=== PATIENT | female | born 1930 | race Caucasian/White ===

== ENCOUNTER 2021-08-13 18:53 | Inpatient (IN) | payer MEDICARE, OTHER ==
[~2021-08-13] VITALS: Ht 149.9 cm; Wt 78.1 kg
[2021-08-13 19:50] LABS: Basophils # (auto) 0 10 ^3/uL (0-0.2); Basophils % (auto) 0.5 % (0.0-2.0); Eosinophils # (auto) 0 10 ^3/uL (0-0.8); Hematocrit 44.3 % (36.0-46.0); Hemoglobin 14.9 g/dL (12.2-16.2); Lymphocytes # (auto) 0.8 10 ^3/uL (0.4-5.4); Lymphocytes % (auto) 18.5 % (10.0-50.0); Mean Corpuscular Hemoglobin 29.4 pg (28.0-32.0); Mean Corpuscular Hgb Conc. 33.6 g/dL (32.0-36.0); Mean Corpuscular Volume 87.3 fL (80.0-100.0); Monocytes # (auto) 0.2 10 ^3/uL (0-1.3); Monocytes % (auto) 5.6 % (0.0-12.0); Neutrophils # (auto) 3.1 10 ^3/uL (1.6-8.6); Neutrophils % (auto) 75.4 % (37.0-80.0); Nucleated Red Blood Cells % 0.1 %; Red Blood Cells 5.07 10^6/uL (4.0-5.20); Red Cell Distribution Width 13.6 % (11.8-14.3); White Blood Cell 4.1 10^3/uL (4.4-10.8)
[2021-08-13 20:08] LABS: INR 0.98 (0.9-1.15); Partial Thromboplastin Time 33.6 sec (23.6-33.0)
[2021-08-13 20:16] LABS: Albumin 3.2 g/dL (3.4-5.0); Calcium 8.9 mg/dL (8.5-10.1); Magnesium 2.5 mg/dL (1.6-2.6); Potassium 4.8 mmol/L (3.5-5.1)
[2021-08-13 20:22] LABS: Bilirubin, Total 0.5 mg/dL (0.2-1.0); Total Protein 7.2 g/dL (6.4-8.2)
[2021-08-13] MEDS ORDERED: cefTRIAXone 1GM/50ML D5W 50 ML IV ONE (23:15)
[2021-08-13] MEDS ORDERED: AZITHROMYCIN 500MG/ 250ML 250 ML IV ONE (23:15)
[2021-08-13 23:26] LABS: INR 0.98 (0.9-1.15)
[2021-08-14] MEDS ORDERED: diphenhdrAMINE HCL 50 MG/1 ML VL IV ONE (00:15)
[2021-08-14] MEDS ORDERED: ACETAMINOPHEN 325 MG TAB PO PRN (03:45)
[2021-08-14] MEDS ORDERED: ONDANSETRON HCL 4 MG/2 ML VIAL IV PRN (03:45)
[2021-08-14] MEDS ORDERED: DOCUSATE SOD 100 MG CAP PO PRN (03:45)
[2021-08-14] MEDS ORDERED: HYDROcodone-ACET 5/325MG TAB PO PRN (03:45)
[2021-08-14] MEDS ORDERED: MORPHINE SULFATE INJECTION 2 MG/ML SYRG IV PRN (06:00)
[2021-08-14] MEDS ORDERED: NITROGLYCERIN 0.4 MG SL TAB SL PRN (06:00)
[2021-08-14] MEDS: SODIUM CHLOR 0.9% PF (SALINE LOCK) 10ML VIAL/SYR IV SCH ×3 (06:03→23:17)
[2021-08-14 07:51] LABS: Urine Bacteria NONE SEEN /hpf (None Seen); Urine Blood Negative /uL (Negative); Urine Hyaline Cast FEW /lpf (0 - 2); Urine Mucus FEW (None Seen); Urine Specific Gravity 1.017 (1.001-1.035); Urine WBC 21 /hpf (0 - 5)
[2021-08-14 08:44] LABS: Basophils # (auto) 0 10 ^3/uL (0-0.2); Basophils % (auto) 0.2 % (0.0-2.0); Eosinophils # (auto) 0 10 ^3/uL (0-0.8); Eosinophils % (auto) 0.1 % (0.0-7.0); Hematocrit 41.7 % (36.0-46.0); Hemoglobin 13.6 g/dL (12.2-16.2); Lymphocytes # (auto) 0.7 10 ^3/uL (0.4-5.4); Lymphocytes % (auto) 16.2 % (10.0-50.0); Mean Corpuscular Hemoglobin 28.6 pg (28.0-32.0); Mean Corpuscular Hgb Conc. 32.6 g/dL (32.0-36.0); Mean Corpuscular Volume 87.5 fL (80.0-100.0); Monocytes # (auto) 0.2 10 ^3/uL (0-1.3); Monocytes % (auto) 5.5 % (0.0-12.0); Neutrophils # (auto) 3.5 10 ^3/uL (1.6-8.6); Nucleated Red Blood Cells % 0.2 %; Red Blood Cells 4.77 10^6/uL (4.0-5.20); Red Cell Distribution Width 13.5 % (11.8-14.3); White Blood Cell 4.5 10^3/uL (4.4-10.8)
[2021-08-14 08:59] LABS: Albumin 2.7 g/dL (3.4-5.0); Calcium 8.6 mg/dL (8.5-10.1); Potassium 4.6 mmol/L (3.5-5.1)
[2021-08-14 09:10] LABS: BUN/Creatinine Ratio 20.8; Bilirubin, Total 0.3 mg/dL (0.2-1.0); Total Protein 6.5 g/dL (6.4-8.2)
[2021-08-14] MEDS: ZINC SULFATE 220mg CAP or TAB PO SCH (10:00)
[2021-08-14] MEDS: MULTIPLE VITAMIN TAB PO SCH (10:00)
[2021-08-14] MEDS: ASCORBIC ACID 500 MG TAB PO SCH ×2 (10:00→23:17)
[2021-08-14] MEDS: FAMOTIDINE (10MG/ML) 2ML VL IV SCH (10:24)
[2021-08-14] MEDS: ENOXAPARIN SOD 30 MG/0.3 ML SYRINGE SC SCH (10:25)
[2021-08-14] MEDS ORDERED: REMDESIVIR PER PHARMACY 0 ML IV SCH (14:30)
[2021-08-14] MEDS ORDERED: DexAMETHasone SOD PHOS 10MG/1ML VIAL INJ IV ONE (14:30)
[2021-08-14] MEDS ORDERED: REMDESIVIR 200 MG in NS 210ml LOADING DOSE ADULT IV ONE (15:00)
[2021-08-14] MEDS: cefTRIAXone 1GM/50ML D5W 50 ML IV SCH (22:55)
[2021-08-14] MEDS: AZITHROMYCIN 500MG/ 250ML 250 ML IV SCH (23:18)
[2021-08-14] MEDS ORDERED: ROSU1TAB13 PO (23:42)
[2021-08-14] MEDS ORDERED: LOSA-39 PO (23:42)
[2021-08-14] MEDS ORDERED: METO25TA93 PO (23:42)
[2021-08-14] MEDS ORDERED: BUSP5TAB51 PO (23:42)
[2021-08-14] MEDS ORDERED: PANT40TA2 PO (23:42)
[2021-08-14] MEDS ORDERED: TAMS0.4C36 PO (23:42)
[2021-08-14] MEDS ORDERED: CLON0.1D7 TD (23:42)
[2021-08-14] MEDS ORDERED: APIX2.5T PO (23:42)
[2021-08-14 23:46] VITALS: BP 114/69
[2021-08-15 05:00] VITALS: BP 113/66
[2021-08-15] MEDS: SODIUM CHLOR 0.9% PF (SALINE LOCK) 10ML VIAL/SYR IV SCH ×3 (05:06→20:55)
[2021-08-15 06:46] LABS: Basophils # (auto) 0 10 ^3/uL (0-0.2); Basophils % (auto) 0.7 % (0.0-2.0); Eosinophils # (auto) 0 10 ^3/uL (0-0.8); Hematocrit 41.2 % (36.0-46.0); Hemoglobin 13.8 g/dL (12.2-16.2); Lymphocytes # (auto) 0.7 10 ^3/uL (0.4-5.4); Mean Corpuscular Hemoglobin 29.5 pg (28.0-32.0); Mean Corpuscular Hgb Conc. 33.6 g/dL (32.0-36.0); Mean Corpuscular Volume 87.9 fL (80.0-100.0); Monocytes # (auto) 0.5 10 ^3/uL (0-1.3); Monocytes % (auto) 10.6 % (0.0-12.0); Neutrophils # (auto) 3.3 10 ^3/uL (1.6-8.6); Neutrophils % (auto) 73.7 % (37.0-80.0); Nucleated Red Blood Cells % 0.1 %; Red Blood Cells 4.68 10^6/uL (4.0-5.20); Red Cell Distribution Width 13.7 % (11.8-14.3); White Blood Cell 4.5 10^3/uL (4.4-10.8)
[2021-08-15 07:02] LABS: Potassium 4.8 mmol/L (3.5-5.1)
[2021-08-15 07:09] LABS: Albumin 2.5 g/dL (3.4-5.0); BUN/Creatinine Ratio 27.7; Bilirubin, Total 0.4 mg/dL (0.2-1.0); Calcium 8.2 mg/dL (8.5-10.1); Magnesium 2.7 mg/dL (1.6-2.6); Total Protein 6.3 g/dL (6.4-8.2)
[2021-08-15 08:54] VITALS: BP 119/57
[2021-08-15] MEDS ORDERED: BUDESONIDE (INHALATION) 180 MCG IH IN SCH (10:00)
[2021-08-15] MEDS: ASCORBIC ACID 500 MG TAB PO SCH ×2 (10:00→21:12)
[2021-08-15] MEDS: ZINC SULFATE 220mg CAP or TAB PO SCH (10:00)
[2021-08-15] MEDS: MULTIPLE VITAMIN TAB PO SCH (10:00)
[2021-08-15] MEDS: DexAMETHasone SOD PHOS 10MG/1ML VIAL INJ IV SCH (10:38)
[2021-08-15] MEDS: ENOXAPARIN SOD 30 MG/0.3 ML SYRINGE SC SCH (10:38)
[2021-08-15] MEDS: FAMOTIDINE (10MG/ML) 2ML VL IV SCH (10:38)
[2021-08-15 12:51] VITALS: BP 97/51
[2021-08-15] MEDS: REMDESIVIR 100mg 100 MG in SODIUM CHL 0.9% 230 ML IV SCH (15:08)
[2021-08-15 17:00] VITALS: BP 121/78
[2021-08-15] MEDS: cefTRIAXone 1GM/50ML D5W 50 ML IV SCH (20:55)
[2021-08-15] MEDS: AZITHROMYCIN 500MG/ 250ML 250 ML IV SCH (20:55)
[2021-08-15] MEDS: BUDESONIDE (INHALATION) 0.5 MG/2 ML NEB NEB SCH (21:49)
[2021-08-15 22:00] VITALS: BP 123/57
[2021-08-16 05:00] VITALS: BP 116/56
[2021-08-16] MEDS: SODIUM CHLOR 0.9% PF (SALINE LOCK) 10ML VIAL/SYR IV SCH ×3 (05:51→22:00)
[2021-08-16] MEDS: BUDESONIDE (INHALATION) 0.5 MG/2 ML NEB NEB SCH ×2 (05:57→21:56)
[2021-08-16 06:23] LABS: Albumin 2.5 g/dL (3.4-5.0); Bilirubin, Direct 0.1 mg/dL (0-0.2)
[2021-08-16 06:26] LABS: Bilirubin, Total 0.4 mg/dL (0.2-1.0); Total Protein 5.5 g/dL (6.4-8.2)
[2021-08-16 09:00] VITALS: BP 108/56
[2021-08-16] MEDS: DexAMETHasone SOD PHOS 10MG/1ML VIAL INJ IV SCH (09:05)
[2021-08-16] MEDS: MULTIPLE VITAMIN TAB PO SCH (09:05)
[2021-08-16] MEDS: ENOXAPARIN SOD 30 MG/0.3 ML SYRINGE SC SCH (09:05)
[2021-08-16] MEDS: ASCORBIC ACID 500 MG TAB PO SCH ×2 (09:05→22:32)
[2021-08-16] MEDS: FAMOTIDINE (10MG/ML) 2ML VL IV SCH (09:05)
[2021-08-16] MEDS: ZINC SULFATE 220mg CAP or TAB PO SCH (09:05)
[2021-08-16] MEDS: ARTIFICIAL TEARS 15ml EACHEYE SCH ×4 (12:00→18:00)
[2021-08-16 13:00] VITALS: BP 121/61
[2021-08-16] MEDS: REMDESIVIR 100mg 100 MG in SODIUM CHL 0.9% 230 ML IV SCH (15:00)
[2021-08-16 16:42] VITALS: BP 105/50
[2021-08-16 22:00] VITALS: BP 142/60
[2021-08-17 05:00] VITALS: BP 132/65
[2021-08-17] MEDS: SODIUM CHLOR 0.9% PF (SALINE LOCK) 10ML VIAL/SYR IV SCH ×3 (06:24→22:00)
[2021-08-17] MEDS: ARTIFICIAL TEARS 15ml EACHEYE SCH ×4 (06:27→16:59)
[2021-08-17 07:35] LABS: Albumin 2.6 g/dL (3.4-5.0); Bilirubin, Direct 0.2 mg/dL (0-0.2); Bilirubin, Total 0.5 mg/dL (0.2-1.0); Total Protein 5.5 g/dL (6.4-8.2)
[2021-08-17] MEDS: BUDESONIDE (INHALATION) 0.5 MG/2 ML NEB NEB SCH ×2 (09:22→20:50)
[2021-08-17] MEDS: DexAMETHasone SOD PHOS 10MG/1ML VIAL INJ IV SCH (09:29)
[2021-08-17] MEDS: MULTIPLE VITAMIN TAB PO SCH (09:29)
[2021-08-17] MEDS: ENOXAPARIN SOD 30 MG/0.3 ML SYRINGE SC SCH (09:29)
[2021-08-17] MEDS: ASCORBIC ACID 500 MG TAB PO SCH ×2 (09:30→22:00)
[2021-08-17] MEDS: ZINC SULFATE 220mg CAP or TAB PO SCH (09:30)
[2021-08-17] MEDS: FAMOTIDINE (10MG/ML) 2ML VL IV SCH (09:30)
[2021-08-17] MEDS: REMDESIVIR 100mg 100 MG in SODIUM CHL 0.9% 230 ML IV SCH (15:09)
[2021-08-17 17:00] VITALS: BP 141/60
[2021-08-17 22:00] VITALS: BP 141/71
[2021-08-18 05:00] VITALS: BP 147/75
[2021-08-18] MEDS: ARTIFICIAL TEARS 15ml EACHEYE SCH ×5 (05:33→23:17)
[2021-08-18] MEDS: SODIUM CHLOR 0.9% PF (SALINE LOCK) 10ML VIAL/SYR IV SCH ×3 (05:33→22:00)
[2021-08-18 07:19] LABS: Albumin 2.6 g/dL (3.4-5.0); BUN/Creatinine Ratio 55.8; Calcium 9.1 mg/dL (8.5-10.1); Potassium 4.4 mmol/L (3.5-5.1)
[2021-08-18 07:21] LABS: Bilirubin, Total 0.7 mg/dL (0.2-1.0); Total Protein 5.7 g/dL (6.4-8.2)
[2021-08-18 08:54] VITALS: BP 129/91
[2021-08-18] MEDS: FAMOTIDINE (10MG/ML) 2ML VL IV SCH (09:21)
[2021-08-18] MEDS: DexAMETHasone SOD PHOS 10MG/1ML VIAL INJ IV SCH (09:22)
[2021-08-18] MEDS: ENOXAPARIN SOD 30 MG/0.3 ML SYRINGE SC SCH (09:23)
[2021-08-18] MEDS: ZINC SULFATE 220mg CAP or TAB PO SCH (09:34)
[2021-08-18] MEDS: MULTIPLE VITAMIN TAB PO SCH (09:34)
[2021-08-18] MEDS: ASCORBIC ACID 500 MG TAB PO SCH ×2 (09:34→23:17)
[2021-08-18] MEDS: BUDESONIDE (INHALATION) 0.5 MG/2 ML NEB NEB SCH ×2 (10:00→23:29)
[2021-08-18 12:57] VITALS: BP 123/61
[2021-08-18] MEDS: REMDESIVIR 100mg 100 MG in SODIUM CHL 0.9% 230 ML IV SCH (16:20)
[2021-08-18 16:25] VITALS: BP 145/65
[2021-08-18 22:00] VITALS: BP 126/43
[2021-08-19] MEDS: SODIUM CHLOR 0.9% PF (SALINE LOCK) 10ML VIAL/SYR IV SCH ×3 (05:59→22:00)
[2021-08-19] MEDS: ARTIFICIAL TEARS 15ml EACHEYE SCH ×3 (05:59→17:33)
[2021-08-19] MEDS: BUDESONIDE (INHALATION) 0.5 MG/2 ML NEB NEB SCH ×2 (07:18→22:22)
[2021-08-19 08:15] VITALS: BP 126/53
[2021-08-19] MEDS: MULTIPLE VITAMIN TAB PO SCH (10:05)
[2021-08-19] MEDS: DexAMETHasone SOD PHOS 10MG/1ML VIAL INJ IV SCH (10:05)
[2021-08-19] MEDS: ZINC SULFATE 220mg CAP or TAB PO SCH (10:05)
[2021-08-19] MEDS: FAMOTIDINE (10MG/ML) 2ML VL IV SCH (10:05)
[2021-08-19] MEDS: ASCORBIC ACID 500 MG TAB PO SCH ×2 (10:06→22:00)
[2021-08-19] MEDS: ENOXAPARIN SOD 30 MG/0.3 ML SYRINGE SC SCH (10:06)
[2021-08-19] MEDS: HALOPERIDOL LACTATE 5 MG/ML INJ VIAL IM PRN ×2 (11:29→18:27)
[2021-08-19 22:00] VITALS: BP 121/50
[2021-08-20] MEDS: ARTIFICIAL TEARS 15ml EACHEYE SCH ×5 (00:29→23:26)
[2021-08-20] MEDS: HALOPERIDOL LACTATE 5 MG/ML INJ VIAL IM PRN ×3 (00:58→21:54)
[2021-08-20] MEDS: LORazepam 2MG/ML-1ML VIAL IV PRN ×2 (01:36→08:30)
[2021-08-20 05:00] VITALS: BP 127/84
[2021-08-20] MEDS: SODIUM CHLOR 0.9% PF (SALINE LOCK) 10ML VIAL/SYR IV SCH ×3 (05:56→21:54)
[2021-08-20] MEDS: BUDESONIDE (INHALATION) 0.5 MG/2 ML NEB NEB SCH ×2 (06:13→18:53)
[2021-08-20 07:56] LABS: Basophils # (auto) 0 10 ^3/uL (0-0.2); Basophils % (auto) 0.1 % (0.0-2.0); Eosinophils # (auto) 0 10 ^3/uL (0-0.8); Hematocrit 44.4 % (36.0-46.0); Hemoglobin 14.3 g/dL (12.2-16.2); Lymphocytes # (auto) 0.2 10 ^3/uL (0.4-5.4); Lymphocytes % (auto) 2.2 % (10.0-50.0); Mean Corpuscular Hemoglobin 28.7 pg (28.0-32.0); Mean Corpuscular Hgb Conc. 32.3 g/dL (32.0-36.0); Mean Corpuscular Volume 88.8 fL (80.0-100.0); Monocytes # (auto) 0.2 10 ^3/uL (0-1.3); Monocytes % (auto) 2.1 % (0.0-12.0); Neutrophils # (auto) 10.7 10 ^3/uL (1.6-8.6); Neutrophils % (auto) 95.6 % (37.0-80.0); Nucleated Red Blood Cells % 0.1 %; Red Cell Distribution Width 13.5 % (11.8-14.3); White Blood Cell 11.2 10^3/uL (4.4-10.8)
[2021-08-20 08:11] LABS: Magnesium 3.1 mg/dL (1.6-2.6); Potassium 4.1 mmol/L (3.5-5.1)
[2021-08-20 08:13] LABS: BUN/Creatinine Ratio 51.8; Calcium 9.8 mg/dL (8.5-10.1)
[2021-08-20 08:15] VITALS: BP 108/53
[2021-08-20 09:00] VITALS: BP 132/72
[2021-08-20] MEDS: MULTIPLE VITAMIN TAB PO SCH (10:00)
[2021-08-20] MEDS: ASCORBIC ACID 500 MG TAB PO SCH ×2 (10:00→21:54)
[2021-08-20] MEDS: ZINC SULFATE 220mg CAP or TAB PO SCH (10:00)
[2021-08-20] MEDS: FAMOTIDINE (10MG/ML) 2ML VL IV SCH (10:20)
[2021-08-20] MEDS: DexAMETHasone SOD PHOS 10MG/1ML VIAL INJ IV SCH (10:20)
[2021-08-20] MEDS: ENOXAPARIN SOD 30 MG/0.3 ML SYRINGE SC SCH (10:21)
[2021-08-20] MEDS ORDERED: PPN PER PHARMACY 0 ML IV SCH (11:30)
[2021-08-20] MEDS: D5W/SOD CHL 0.45% 1,000 ML IV SCH ×2 (11:57→20:46)
[2021-08-20] MEDS: Ensure HIGH Protein Chocolate 8oz Bottle PO SCH ×2 (12:23→17:47)
[2021-08-20 12:41] LABS: Albumin 2.7 g/dL (3.4-5.0); Bilirubin, Direct 0.3 mg/dL (0-0.2)
[2021-08-20 12:48] LABS: Bilirubin, Total 1.1 mg/dL (0.2-1.0); Pre Albumin 15.6 mg/dL (20.0-40.0); Total Protein 6.1 g/dL (6.4-8.2)
[2021-08-20 13:00] VITALS: BP 123/61
[2021-08-20] MEDS ORDERED: PPN PER PHARMACY IV NR ×6 (20:00)
[2021-08-20 22:00] VITALS: BP 144/64
[2021-08-20] MEDS: ACCU-CHEK COMFORT CURVE STRIP VI SCH (23:27)
[2021-08-20] MEDS: InsuLIN REG 1unit/0.01ml Soln (100units/ml) SC SCH (23:27)
[2021-08-21] VITALS (8 sets, daily range): BP systolic 88–158; BP diastolic 51–95
[2021-08-21] MEDS ORDERED: DEXTROSE (50%) 50ML SYRG IV SCH
[2021-08-21] MEDS: SODIUM CHLOR 0.9% PF (SALINE LOCK) 10ML VIAL/SYR IV SCH ×3 (05:19→22:13)
[2021-08-21] MEDS: ARTIFICIAL TEARS 15ml EACHEYE SCH ×3 (05:19→17:44)
[2021-08-21] MEDS: InsuLIN REG 1unit/0.01ml Soln (100units/ml) SC SCH ×2 (05:51→12:00)
[2021-08-21] MEDS: ACCU-CHEK COMFORT CURVE STRIP VI SCH ×2 (06:34→12:00)
[2021-08-21] MEDS: HALOPERIDOL LACTATE 5 MG/ML INJ VIAL IM PRN (06:43)
[2021-08-21 06:44] LABS: Basophils # (auto) 0 10 ^3/uL (0-0.2); Basophils % (auto) 0.1 % (0.0-2.0); Eosinophils # (auto) 0 10 ^3/uL (0-0.8); Hematocrit 40.6 % (36.0-46.0); Hemoglobin 12.9 g/dL (12.2-16.2); Lymphocytes # (auto) 0.3 10 ^3/uL (0.4-5.4); Lymphocytes % (auto) 2.1 % (10.0-50.0); Mean Corpuscular Hemoglobin 28.2 pg (28.0-32.0); Mean Corpuscular Hgb Conc. 31.9 g/dL (32.0-36.0); Mean Corpuscular Volume 88.7 fL (80.0-100.0); Monocytes # (auto) 0.6 10 ^3/uL (0-1.3); Monocytes % (auto) 3.6 % (0.0-12.0); Neutrophils # (auto) 14.9 10 ^3/uL (1.6-8.6); Neutrophils % (auto) 94.2 % (37.0-80.0); Red Blood Cells 4.57 10^6/uL (4.0-5.20); Red Cell Distribution Width 13.6 % (11.8-14.3); White Blood Cell 15.8 10^3/uL (4.4-10.8)
[2021-08-21 06:57] LABS: Albumin 2.3 g/dL (3.4-5.0); Calcium 8.9 mg/dL (8.5-10.1); Magnesium 3.5 mg/dL (1.6-2.6); Potassium 3.9 mmol/L (3.5-5.1)
[2021-08-21 07:03] LABS: BUN/Creatinine Ratio 53.9; Bilirubin, Total 0.6 mg/dL (0.2-1.0); Phosphorus 1.8 mg/dL (2.5-4.90); Pre Albumin 13.7 mg/dL (20.0-40.0); Total Protein 5.3 g/dL (6.4-8.2)
[2021-08-21] MEDS: D5W/SOD CHL 0.45% 1,000 ML IV SCH ×4 (07:39→22:14)
[2021-08-21] MEDS: Ensure HIGH Protein Chocolate 8oz Bottle PO SCH ×3 (07:39→17:44)
[2021-08-21] MEDS: ZINC SULFATE 220mg CAP or TAB PO SCH (10:00)
[2021-08-21] MEDS: BUDESONIDE (INHALATION) 0.5 MG/2 ML NEB NEB SCH ×2 (10:00→22:06)
[2021-08-21] MEDS: MULTIPLE VITAMIN TAB PO SCH (10:00)
[2021-08-21] MEDS: ASCORBIC ACID 500 MG TAB PO SCH ×2 (10:00→22:13)
[2021-08-21] MEDS: DexAMETHasone SOD PHOS 10MG/1ML VIAL INJ IV SCH (10:05)
[2021-08-21] MEDS: FAMOTIDINE (10MG/ML) 2ML VL IV SCH (10:05)
[2021-08-21] MEDS: ENOXAPARIN SOD 30 MG/0.3 ML SYRINGE SC SCH (10:06)
[2021-08-21] MEDS ORDERED: LORazepam 2MG/ML-1ML VIAL IV ONE (10:30)
[2021-08-21] MEDS ORDERED: MIDAZOLAM HCL 2MG/2ML 2ml VIAL (1mg/ml) ONE (10:58)
[2021-08-21] MEDS ORDERED: ROCURONIUM 10MG/ML 10ML VIAL IV ONE (10:58)
[2021-08-21] MEDS ORDERED: SUCCINYLCHOLINE CHLORIDE 20 MG/ML 10ML VIAL IV ONE (10:58)
[2021-08-21] MEDS ORDERED: fentaNYL Drip 2500mCg/250mlNS 250 ML IV ONE ×2 (10:58→12:52)
[2021-08-21] MEDS ORDERED: NOREPINEPHRINE 8 MG/250ML KIT 250 ML IV ONE (10:59)
[2021-08-21] MEDS ORDERED: MIDAZOLAM DRIP 50 mg/50mL 50 ML IV ONE (11:11)
[2021-08-21] MEDS ORDERED: AMIODARONE HCL 150 MG in D5W 5% 100 ML IV ONE (11:45)
[2021-08-21] MEDS ORDERED: AMIODARONE 450mg/250ml AE 250 ML IV SCH (11:45)
[2021-08-21] MEDS ORDERED: POTASSIUM PHOSPHATE 44 MEQ in D5W 5% 250 ML IV ONE (12:00)
[2021-08-21] MEDS ORDERED: ETOMIDATE (2MG/ML) 20ML VIAL IV ONE (12:43)
[2021-08-21] MEDS ORDERED: AMIODARONE HCL (50 MG/ ML) 3 ML VIAL IV ONE (13:00)
[2021-08-21] MEDS ORDERED: ADENOSINE 6 MG/2 ML INJ IV ONE (13:00)
[2021-08-21] MEDS ORDERED: AMIODARONE 450mg/250ml AE 250 ML IV ONE (13:00)
[2021-08-21] MEDS ORDERED: VASOPRESSIN 20 UNIT/ML ONE (13:09)
[2021-08-21] MEDS ORDERED: PHENYLEPHRINE IV 250 ML IV ONE (13:09)
[2021-08-21] MEDS ORDERED: EPINEPHrine HCL 1 MG/10 ML SYRG ONE (13:10)
[2021-08-21] MEDS: EPINEPHrine HCL 250 ML IV SCH (13:15)
[2021-08-21] MEDS ORDERED: PROPOFOL 100 ML IV ONE (19:47)
[2021-08-21] MEDS ORDERED: PPN PER PHARMACY IV NR ×5 (20:00)
[2021-08-21] MEDS: AMIODARONE 450mg/250ml AE 250 ML IV SCH ×2 (20:23→22:17)
[2021-08-21] MEDS ORDERED: NOREPINEPHRINE 8 MG/250ML KIT 250 ML IV SCH (23:00)
[2021-08-22] VITALS (55 sets, daily range): BP systolic 83–177; BP diastolic 35–85
[2021-08-22] MEDS: ACCU-CHEK COMFORT CURVE STRIP VI SCH ×5 (00:42→18:00)
[2021-08-22] MEDS: InsuLIN REG 1unit/0.01ml Soln (100units/ml) SC SCH ×5 (00:44→18:00)
[2021-08-22] MEDS: PROPOFOL 100 ML IV SCH ×2 (00:45→23:15)
[2021-08-22] MEDS: ARTIFICIAL TEARS 15ml EACHEYE SCH ×4 (00:47→18:00)
[2021-08-22 05:03] LABS: Calcium 8.2 mg/dL (8.5-10.1); Magnesium 3.1 mg/dL (1.6-2.6); Potassium 3.5 mmol/L (3.5-5.1)
[2021-08-22 05:07] LABS: BUN/Creatinine Ratio 44.8; Bilirubin, Total 0.9 mg/dL (0.2-1.0); Total Protein 4.5 g/dL (6.4-8.2)
[2021-08-22] MEDS: SODIUM CHLOR 0.9% PF (SALINE LOCK) 10ML VIAL/SYR IV SCH ×3 (06:26→21:53)
[2021-08-22] MEDS: Ensure HIGH Protein Chocolate 8oz Bottle PO SCH ×3 (08:00→18:00)
[2021-08-22] MEDS ORDERED: POTASSIUM PHOSPHATE 22 MEQ in SODIUM CHL 0.9% 100 ML IV ONE (10:00)
[2021-08-22] MEDS: FAMOTIDINE (10MG/ML) 2ML VL IV SCH (10:09)
[2021-08-22] MEDS: MULTIPLE VITAMIN TAB PO SCH (10:09)
[2021-08-22] MEDS: ZINC SULFATE 220mg CAP or TAB PO SCH (10:09)
[2021-08-22] MEDS: ENOXAPARIN SOD 30 MG/0.3 ML SYRINGE SC SCH (10:10)
[2021-08-22] MEDS: ASCORBIC ACID 500 MG TAB PO SCH ×2 (10:10→21:53)
[2021-08-22] MEDS: DexAMETHasone SOD PHOS 10MG/1ML VIAL INJ IV SCH (10:10)
[2021-08-22] MEDS: BUDESONIDE (INHALATION) 0.5 MG/2 ML NEB NEB SCH ×2 (11:39→22:05)
[2021-08-22] MEDS: EPINEPHrine HCL 250 ML IV SCH (13:15)
[2021-08-22] MEDS: NOREPINEPHRINE 8 MG/250ML KIT 250 ML IV SCH ×2 (19:00→23:30)
[2021-08-22] MEDS ORDERED: PPN PER PHARMACY IV NR ×5 (20:00)
[2021-08-22] MEDS: D5W/SOD CHL 0.45% 1,000 ML IV SCH (23:00)
[2021-08-22] MEDS: fentaNYL Drip 2500mCg/250mlNS 250 ML IV SCH (23:15)
[2021-08-22] MEDS: AMIODARONE 450mg/250ml AE 250 ML IV SCH (23:45)
[2021-08-23] VITALS (56 sets, daily range): BP systolic 92–154; BP diastolic 35–66
[2021-08-23 02:42] LABS: Albumin 1.8 g/dL (3.4-5.0); Magnesium 1.9 mg/dL (1.6-2.6)
[2021-08-23 02:44] LABS: BUN/Creatinine Ratio 59.6
[2021-08-23 02:47] LABS: Bilirubin, Total 0.5 mg/dL (0.2-1.0); Phosphorus 2.9 mg/dL (2.5-4.90); Total Protein 4.4 g/dL (6.4-8.2)
[2021-08-23] MEDS: Ensure HIGH Protein Chocolate 8oz Bottle PO SCH ×3 (03:52→17:37)
[2021-08-23 04:50] LABS: Basophils # (auto) 0 10 ^3/uL (0-0.2); Eosinophils # (auto) 0 10 ^3/uL (0-0.8); Hematocrit 34.4 % (36.0-46.0); Hemoglobin 11.4 g/dL (12.2-16.2); Lymphocytes # (auto) 0.3 10 ^3/uL (0.4-5.4); Mean Corpuscular Volume 88.1 fL (80.0-100.0); Neutrophils # (auto) 9.9 10 ^3/uL (1.6-8.6); White Blood Cell 10.4 10^3/uL (4.4-10.8)
[2021-08-23 04:53] LABS: Basophils % (auto) 0.2 % (0.0-2.0); Lymphocytes % (auto) 2.6 % (10.0-50.0); Mean Corpuscular Hemoglobin 29.3 pg (28.0-32.0); Mean Corpuscular Hgb Conc. 33.2 g/dL (32.0-36.0); Monocytes # (auto) 0.2 10 ^3/uL (0-1.3); Monocytes % (auto) 2.2 % (0.0-12.0); Red Cell Distribution Width 13.5 % (11.8-14.3)
[2021-08-23] MEDS: ARTIFICIAL TEARS 15ml EACHEYE SCH ×4 (05:11→17:37)
[2021-08-23] MEDS: SODIUM CHLOR 0.9% PF (SALINE LOCK) 10ML VIAL/SYR IV SCH ×3 (05:11→21:34)
[2021-08-23] MEDS: ACCU-CHEK COMFORT CURVE STRIP VI SCH ×4 (05:11→17:38)
[2021-08-23] MEDS: InsuLIN REG 1unit/0.01ml Soln (100units/ml) SC SCH ×4 (05:12→17:37)
[2021-08-23] MEDS: BUDESONIDE (INHALATION) 0.5 MG/2 ML NEB NEB SCH ×2 (05:47→22:45)
[2021-08-23] MEDS: DexAMETHasone SOD PHOS 10MG/1ML VIAL INJ IV SCH (10:00)
[2021-08-23] MEDS: ASCORBIC ACID 500 MG TAB PO SCH ×2 (10:00→21:35)
[2021-08-23] MEDS: FAMOTIDINE (10MG/ML) 2ML VL IV SCH (10:00)
[2021-08-23] MEDS: ENOXAPARIN SOD 30 MG/0.3 ML SYRINGE SC SCH (10:00)
[2021-08-23] MEDS: MULTIPLE VITAMIN TAB PO SCH (10:00)
[2021-08-23] MEDS: ZINC SULFATE 220mg CAP or TAB PO SCH (10:00)
[2021-08-23] MEDS ORDERED: TPN PER PHARMACY 0 ML IV SCH (10:30)
[2021-08-23] MEDS: D5W/SOD CHL 0.45% 1,000 ML IV SCH (12:29)
[2021-08-23] MEDS: EPINEPHrine HCL 250 ML IV SCH (12:31)
[2021-08-23] MEDS: fentaNYL Drip 2500mCg/250mlNS 250 ML IV SCH (17:40)
[2021-08-23] MEDS ORDERED: TPN PER PHARMACY IV NR ×9 (20:00)
[2021-08-23] MEDS: PROPOFOL 100 ML IV SCH (23:15)
[2021-08-23] MEDS: NOREPINEPHRINE 8 MG/250ML KIT 250 ML IV SCH (23:30)
[2021-08-24] VITALS (65 sets, daily range): BP systolic 95–201; BP diastolic 29–78
[2021-08-24] MEDS: ARTIFICIAL TEARS 15ml EACHEYE SCH ×4 (00:18→18:00)
[2021-08-24] MEDS: ACCU-CHEK COMFORT CURVE STRIP VI SCH ×4 (00:18→18:00)
[2021-08-24] MEDS: InsuLIN REG 1unit/0.01ml Soln (100units/ml) SC SCH ×4 (00:19→18:00)
[2021-08-24] MEDS: D5W/SOD CHL 0.45% 1,000 ML IV SCH ×3 (01:20→23:29)
[2021-08-24 05:11] LABS: Albumin 1.6 g/dL (3.4-5.0); BUN/Creatinine Ratio 57.3; Potassium 3.9 mmol/L (3.5-5.1)
[2021-08-24 05:31] LABS: Bilirubin, Total 0.5 mg/dL (0.2-1.0); Magnesium 2.3 mg/dL (1.6-2.6); Phosphorus 2.6 mg/dL (2.5-4.90); Total Protein 4.3 g/dL (6.4-8.2)
[2021-08-24] MEDS: SODIUM CHLOR 0.9% PF (SALINE LOCK) 10ML VIAL/SYR IV SCH ×3 (06:00→22:00)
[2021-08-24] MEDS: BUDESONIDE (INHALATION) 0.5 MG/2 ML NEB NEB SCH ×2 (06:06→18:23)
[2021-08-24] MEDS: PROPOFOL 100 ML IV SCH (06:30)
[2021-08-24] MEDS: Ensure HIGH Protein Chocolate 8oz Bottle PO SCH ×3 (08:00→17:38)
[2021-08-24] MEDS: DexAMETHasone SOD PHOS 10MG/1ML VIAL INJ IV SCH (10:00)
[2021-08-24] MEDS: MULTIPLE VITAMIN TAB PO SCH (10:00)
[2021-08-24] MEDS: ZINC SULFATE 220mg CAP or TAB PO SCH (10:00)
[2021-08-24] MEDS: ASCORBIC ACID 500 MG TAB PO SCH ×2 (10:00→23:28)
[2021-08-24] MEDS: FAMOTIDINE (10MG/ML) 2ML VL IV SCH (10:00)
[2021-08-24] MEDS: ENOXAPARIN SOD 30 MG/0.3 ML SYRINGE SC SCH (10:00)
[2021-08-24] MEDS ORDERED: SODIUM BICARBONATE 8.4 % INJ 50ML VIAL IV ONE (12:00)
[2021-08-24] MEDS: EPINEPHrine HCL 250 ML IV SCH (13:15)
[2021-08-24] MEDS: fentaNYL Drip 2500mCg/250mlNS 250 ML IV SCH (15:19)
[2021-08-24] MEDS ORDERED: TPN PER PHARMACY IV NR ×8 (20:00)
[2021-08-24] MEDS: NOREPINEPHRINE 8 MG/250ML KIT 250 ML IV SCH (23:30)
[2021-08-25] VITALS (99 sets, daily range): BP systolic 95–160; BP diastolic 30–90
[2021-08-25] MEDS: ACCU-CHEK COMFORT CURVE STRIP VI SCH ×4 (00:12→18:16)
[2021-08-25] MEDS: ARTIFICIAL TEARS 15ml EACHEYE SCH ×4 (00:12→18:16)
[2021-08-25] MEDS: InsuLIN REG 1unit/0.01ml Soln (100units/ml) SC SCH ×4 (00:14→18:16)
[2021-08-25 05:16] LABS: Basophils # (auto) 0.1 10 ^3/uL (0-0.2); Basophils % (auto) 0.5 % (0.0-2.0); Eosinophils # (auto) 0 10 ^3/uL (0-0.8); Hematocrit 31.6 % (36.0-46.0); Hemoglobin 10.7 g/dL (12.2-16.2); Lymphocytes # (auto) 0.2 10 ^3/uL (0.4-5.4); Lymphocytes % (auto) 1.6 % (10.0-50.0); Mean Corpuscular Hemoglobin 29.6 pg (28.0-32.0); Mean Corpuscular Hgb Conc. 33.9 g/dL (32.0-36.0); Mean Corpuscular Volume 87.2 fL (80.0-100.0); Monocytes # (auto) 0.5 10 ^3/uL (0-1.3); Neutrophils # (auto) 12.3 10 ^3/uL (1.6-8.6); Neutrophils % (auto) 93.9 % (37.0-80.0); Red Blood Cells 3.62 10^6/uL (4.0-5.20); Red Cell Distribution Width 13.3 % (11.8-14.3); White Blood Cell 13.1 10^3/uL (4.4-10.8)
[2021-08-25 05:39] LABS: Albumin 1.4 g/dL (3.4-5.0); BUN/Creatinine Ratio 59.4; Magnesium 2.2 mg/dL (1.6-2.6)
[2021-08-25 05:43] LABS: Bilirubin, Total 0.6 mg/dL (0.2-1.0); Phosphorus 2.6 mg/dL (2.5-4.90); Total Protein 4.2 g/dL (6.4-8.2)
[2021-08-25] MEDS: SODIUM CHLOR 0.9% PF (SALINE LOCK) 10ML VIAL/SYR IV SCH ×3 (06:00→22:00)
[2021-08-25] MEDS: fentaNYL Drip 2500mCg/250mlNS 250 ML IV SCH ×2 (06:56→20:00)
[2021-08-25] MEDS: BUDESONIDE (INHALATION) 0.5 MG/2 ML NEB NEB SCH ×2 (07:24→21:38)
[2021-08-25] MEDS: Ensure HIGH Protein Chocolate 8oz Bottle PO SCH ×3 (08:00→18:16)
[2021-08-25] MEDS: FAMOTIDINE (10MG/ML) 2ML VL IV SCH (09:38)
[2021-08-25] MEDS: ENOXAPARIN SOD 30 MG/0.3 ML SYRINGE SC SCH (09:38)
[2021-08-25] MEDS: ASCORBIC ACID 500 MG TAB PO SCH ×2 (09:38→22:00)
[2021-08-25] MEDS: ZINC SULFATE 220mg CAP or TAB PO SCH (09:38)
[2021-08-25] MEDS: MULTIPLE VITAMIN TAB PO SCH (09:38)
[2021-08-25] MEDS: DexAMETHasone SOD PHOS 10MG/1ML VIAL INJ IV SCH (09:38)
[2021-08-25] MEDS: EPINEPHrine HCL 250 ML IV SCH (13:15)
[2021-08-25] MEDS: D5W/SOD CHL 0.45% 1,000 ML IV SCH ×2 (17:20→21:11)
[2021-08-25] MEDS ORDERED: TPN PER PHARMACY IV NR ×8 (20:00)
[2021-08-25] MEDS: PROPOFOL 100 ML IV SCH (23:15)
[2021-08-25] MEDS: NOREPINEPHRINE 8 MG/250ML KIT 250 ML IV SCH (23:30)
[2021-08-26] VITALS (97 sets, daily range): BP systolic 90–153; BP diastolic 27–85
[2021-08-26] MEDS: ACCU-CHEK COMFORT CURVE STRIP VI SCH ×4 (05:58→18:29)
[2021-08-26] MEDS: SODIUM CHLOR 0.9% PF (SALINE LOCK) 10ML VIAL/SYR IV SCH ×3 (05:58→22:00)
[2021-08-26] MEDS: ARTIFICIAL TEARS 15ml EACHEYE SCH ×4 (05:58→17:09)
[2021-08-26] MEDS: InsuLIN REG 1unit/0.01ml Soln (100units/ml) SC SCH ×4 (05:59→18:29)
[2021-08-26] MEDS: BUDESONIDE (INHALATION) 0.5 MG/2 ML NEB NEB SCH ×2 (06:30→18:35)
[2021-08-26] MEDS: PROPOFOL 100 ML IV SCH ×2 (06:30→23:13)
[2021-08-26 06:55] LABS: Hematocrit 30.1 % (36.0-46.0); Hemoglobin 10.5 g/dL (12.2-16.2); Mean Corpuscular Hemoglobin 30.4 pg (28.0-32.0); Mean Corpuscular Hgb Conc. 34.8 g/dL (32.0-36.0); Mean Corpuscular Volume 87.2 fL (80.0-100.0); Red Blood Cells 3.45 10^6/uL (4.0-5.20); Red Cell Distribution Width 13.2 % (11.8-14.3); White Blood Cell 10.9 10^3/uL (4.4-10.8)
[2021-08-26 07:20] LABS: Basophils % (manual) 0 (0.0-2.0); Blast Cells 0; Eosinophils % (manual) 0 (0-7); Metamyelocytes % 0; Myelocytes % 0; Promyelocytes % 0; Reactive Lymphocytes 0
[2021-08-26] MEDS: fentaNYL Drip 2500mCg/250mlNS 250 ML IV SCH (07:30)
[2021-08-26 07:34] LABS: Potassium 3.8 mmol/L (3.5-5.1)
[2021-08-26 07:46] LABS: Albumin 1.3 g/dL (3.4-5.0); BUN/Creatinine Ratio 57.7; Bilirubin, Total 1.1 mg/dL (0.2-1.0); Calcium 7.9 mg/dL (8.5-10.1); Magnesium 2.5 mg/dL (1.6-2.6); Phosphorus 2.8 mg/dL (2.5-4.90); Total Protein 4.2 g/dL (6.4-8.2)
[2021-08-26] MEDS: Ensure HIGH Protein Chocolate 8oz Bottle PO SCH ×3 (08:06→17:09)
[2021-08-26 09:39] LABS: Band Neutrophils % (manual) 2; Lymphocytes % (manual) 3 (10.0-50.0); Monocytes % (manual) 3 (0-12)
[2021-08-26] MEDS: ASCORBIC ACID 500 MG TAB PO SCH ×2 (10:00→22:00)
[2021-08-26] MEDS: FAMOTIDINE (10MG/ML) 2ML VL IV SCH (10:00)
[2021-08-26] MEDS: MULTIPLE VITAMIN TAB PO SCH (10:00)
[2021-08-26] MEDS: DexAMETHasone SOD PHOS 10MG/1ML VIAL INJ IV SCH (10:00)
[2021-08-26] MEDS: ENOXAPARIN SOD 30 MG/0.3 ML SYRINGE SC SCH (10:00)
[2021-08-26] MEDS: ZINC SULFATE 220mg CAP or TAB PO SCH (10:00)
[2021-08-26] MEDS: EPINEPHrine HCL 250 ML IV SCH (13:15)
[2021-08-26] MEDS ORDERED: TPN PER PHARMACY IV NR ×7 (20:00)
[2021-08-26] MEDS: D5W/SOD CHL 0.45% 1,000 ML IV SCH (22:00)
[2021-08-26] MEDS: NOREPINEPHRINE 8 MG/250ML KIT 250 ML IV SCH (23:30)
[2021-08-27] VITALS (99 sets, daily range): BP systolic 81–144; BP diastolic 30–62
[2021-08-27 05:19] LABS: Hematocrit 33.1 % (36.0-46.0); Mean Corpuscular Hemoglobin 28.8 pg (28.0-32.0); Mean Corpuscular Hgb Conc. 33.2 g/dL (32.0-36.0); Mean Corpuscular Volume 86.9 fL (80.0-100.0); Red Blood Cells 3.81 10^6/uL (4.0-5.20); Red Cell Distribution Width 13.3 % (11.8-14.3); White Blood Cell 15.1 10^3/uL (4.4-10.8)
[2021-08-27 05:23] LABS: Basophils % (manual) 0 (0.0-2.0); Blast Cells 0; Eosinophils % (manual) 0 (0-7); Metamyelocytes % 0; Myelocytes % 0; Promyelocytes % 0; Reactive Lymphocytes 0
[2021-08-27 05:41] LABS: Albumin 1.2 g/dL (3.4-5.0); Calcium 8.5 mg/dL (8.5-10.1); Magnesium 1.8 mg/dL (1.6-2.6); Potassium 4.4 mmol/L (3.5-5.1)
[2021-08-27 05:46] LABS: Bilirubin, Total 1.7 mg/dL (0.2-1.0); Phosphorus 2.9 mg/dL (2.5-4.90); Total Protein 4.6 g/dL (6.4-8.2)
[2021-08-27] MEDS: ACCU-CHEK COMFORT CURVE STRIP VI SCH ×4 (05:53→16:20)
[2021-08-27] MEDS: ARTIFICIAL TEARS 15ml EACHEYE SCH ×4 (05:53→16:20)
[2021-08-27] MEDS: SODIUM CHLOR 0.9% PF (SALINE LOCK) 10ML VIAL/SYR IV SCH ×3 (05:53→21:31)
[2021-08-27] MEDS: fentaNYL Drip 2500mCg/250mlNS 250 ML IV SCH ×3 (06:00→17:46)
[2021-08-27] MEDS: InsuLIN REG 1unit/0.01ml Soln (100units/ml) SC SCH ×4 (06:00→17:46)
[2021-08-27] MEDS: BUDESONIDE (INHALATION) 0.5 MG/2 ML NEB NEB SCH ×2 (08:01→22:18)
[2021-08-27] MEDS: Ensure HIGH Protein Chocolate 8oz Bottle PO SCH ×3 (08:49→15:21)
[2021-08-27] MEDS: FAMOTIDINE (10MG/ML) 2ML VL IV SCH (08:49)
[2021-08-27] MEDS: ASCORBIC ACID 500 MG TAB PO SCH ×2 (08:49→21:31)
[2021-08-27] MEDS: ZINC SULFATE 220mg CAP or TAB PO SCH (08:49)
[2021-08-27] MEDS: DexAMETHasone SOD PHOS 10MG/1ML VIAL INJ IV SCH (08:49)
[2021-08-27] MEDS: MULTIPLE VITAMIN TAB PO SCH (08:49)
[2021-08-27] MEDS: ENOXAPARIN SOD 30 MG/0.3 ML SYRINGE SC SCH (08:50)
[2021-08-27] MEDS: PROPOFOL 100 ML IV SCH (08:51)
[2021-08-27] MEDS: EPINEPHrine HCL 250 ML IV SCH (09:49)
[2021-08-27 09:56] LABS: Band Neutrophils % (manual) 17; Lymphocytes % (manual) 7 (10.0-50.0); Monocytes % (manual) 1 (0-12)
[2021-08-27] MEDS: D5W/SOD CHL 0.45% 1,000 ML IV SCH ×2 (10:23→23:06)
[2021-08-27] MEDS ORDERED: AZITHROMYCIN 500MG/ 250ML 250 ML IV ONE (12:00)
[2021-08-27] MEDS ORDERED: VANCOMYCIN PER PHARMACY 0 MG IV SCH (15:00)
[2021-08-27] MEDS ORDERED: VANCOMYCIN 1GM/250ML 250 ML IV ONE (15:00)
[2021-08-27] MEDS ORDERED: FUROSEMIDE 40 MG/4 ML VIAL IV ONE (16:15)
[2021-08-27] MEDS ORDERED: FUROSEMIDE 40 MG/4 ML VIAL ONE (16:22)
[2021-08-27] MEDS ORDERED: cefTRIAXone 1GM/50ML D5W 50 ML IV ONE (16:30)
[2021-08-27] MEDS ORDERED: TPN PER PHARMACY IV NR ×7 (20:00)
[2021-08-27] MEDS ORDERED: CEFTAROLINE 600 MG in SODIUM CHL 0.9% 250 ML IV SCH (22:00)
[2021-08-27] MEDS: NOREPINEPHRINE 8 MG/250ML KIT 250 ML IV SCH (22:58)
[2021-08-28] VITALS (101 sets, daily range): BP systolic 99–143; BP diastolic 31–52
[2021-08-28] MEDS: ARTIFICIAL TEARS 15ml EACHEYE SCH ×4 (00:13→17:54)
[2021-08-28] MEDS: InsuLIN REG 1unit/0.01ml Soln (100units/ml) SC SCH ×4 (00:13→17:55)
[2021-08-28] MEDS: ACCU-CHEK COMFORT CURVE STRIP VI SCH ×4 (00:13→17:54)
[2021-08-28] MEDS: NOREPINEPHRINE 8 MG/250ML KIT 250 ML IV SCH (02:00)
[2021-08-28 04:19] LABS: Hematocrit 30.3 % (36.0-46.0); Hemoglobin 10.3 g/dL (12.2-16.2); Mean Corpuscular Hemoglobin 29.2 pg (28.0-32.0); Mean Corpuscular Hgb Conc. 33.9 g/dL (32.0-36.0); Mean Corpuscular Volume 86.2 fL (80.0-100.0); Red Blood Cells 3.52 10^6/uL (4.0-5.20); Red Cell Distribution Width 13.3 % (11.8-14.3)
[2021-08-28 04:38] LABS: Basophils % (manual) 0 (0.0-2.0); Blast Cells 0; Eosinophils % (manual) 0 (0-7); Promyelocytes % 0; Reactive Lymphocytes 0
[2021-08-28 04:41] LABS: Albumin 1.3 g/dL (3.4-5.0); BUN/Creatinine Ratio 59.7; Bilirubin, Total 1.9 mg/dL (0.2-1.0); Calcium 8.3 mg/dL (8.5-10.1); Magnesium 1.9 mg/dL (1.6-2.6); Phosphorus 3.5 mg/dL (2.5-4.90); Total Protein 4.4 g/dL (6.4-8.2)
[2021-08-28] MEDS: fentaNYL Drip 2500mCg/250mlNS 250 ML IV SCH ×2 (06:00→17:56)
[2021-08-28] MEDS: PROPOFOL 100 ML IV SCH ×2 (06:00→17:56)
[2021-08-28] MEDS: SODIUM CHLOR 0.9% PF (SALINE LOCK) 10ML VIAL/SYR IV SCH ×3 (06:00→22:45)
[2021-08-28 06:13] LABS: Band Neutrophils % (manual) 7; Lymphocytes % (manual) 3 (10.0-50.0); Metamyelocytes % 3; Monocytes % (manual) 2 (0-12); Myelocytes % 2
[2021-08-28] MEDS: BUDESONIDE (INHALATION) 0.5 MG/2 ML NEB NEB SCH ×2 (07:27→21:59)
[2021-08-28] MEDS: Ensure HIGH Protein Chocolate 8oz Bottle PO SCH ×3 (08:00→17:54)
[2021-08-28] MEDS ORDERED: D5W/SOD CHL 0.45% 1,000 ML IV SCH ×3 (10:15→20:00)
[2021-08-28] MEDS: FAMOTIDINE (10MG/ML) 2ML VL IV SCH (10:23)
[2021-08-28] MEDS: DexAMETHasone SOD PHOS 10MG/1ML VIAL INJ IV SCH (10:23)
[2021-08-28] MEDS: ENOXAPARIN SOD 30 MG/0.3 ML SYRINGE SC SCH (10:23)
[2021-08-28] MEDS: ASCORBIC ACID 500 MG TAB PO SCH ×2 (10:23→22:44)
[2021-08-28] MEDS: ZINC SULFATE 220mg CAP or TAB PO SCH (10:23)
[2021-08-28] MEDS: AZITHROMYCIN 500MG/ 250ML 250 ML IV SCH (10:23)
[2021-08-28] MEDS: MULTIPLE VITAMIN TAB PO SCH (10:23)
[2021-08-28] MEDS ORDERED: ALBUMIN 25% 50 ML IV SCH ×3 (10:30→23:00)
[2021-08-28] MEDS: D5W/SOD CHL 0.45% 1,000 ML IV SCH ×2 (12:38→19:42)
[2021-08-28] MEDS: EPINEPHrine HCL 250 ML IV SCH (13:15)
[2021-08-28] MEDS: cefTRIAXone 1GM/50ML D5W 50 ML IV SCH (16:00)
[2021-08-28] MEDS ORDERED: VANCOMYCIN 750mg/250ml 250 ML IV ONE (18:30)
[2021-08-28] MEDS ORDERED: TPN PER PHARMACY IV NR ×9 (20:00)
[2021-08-29] VITALS (100 sets, daily range): BP systolic 67–150; BP diastolic 30–59
[2021-08-29] MEDS: ARTIFICIAL TEARS 15ml EACHEYE SCH ×4 (00:06→17:33)
[2021-08-29] MEDS: ACCU-CHEK COMFORT CURVE STRIP VI SCH ×4 (00:06→18:22)
[2021-08-29] MEDS: InsuLIN REG 1unit/0.01ml Soln (100units/ml) SC SCH ×4 (00:11→18:23)
[2021-08-29] MEDS: fentaNYL Drip 2500mCg/250mlNS 250 ML IV SCH ×2 (03:13→15:16)
[2021-08-29] MEDS: PROPOFOL 100 ML IV SCH ×3 (03:13→22:22)
[2021-08-29] MEDS: NOREPINEPHRINE 8 MG/250ML KIT 250 ML IV SCH (03:13)
[2021-08-29 03:27] LABS: Hematocrit 31.1 % (36.0-46.0); Mean Corpuscular Hemoglobin 28.7 pg (28.0-32.0); Mean Corpuscular Hgb Conc. 32.1 g/dL (32.0-36.0); Mean Corpuscular Volume 89.4 fL (80.0-100.0); Red Blood Cells 3.47 10^6/uL (4.0-5.20); Red Cell Distribution Width 14.1 % (11.8-14.3); White Blood Cell 22.5 10^3/uL (4.4-10.8)
[2021-08-29 04:07] LABS: Basophils % (manual) 0 (0.0-2.0); Blast Cells 0; Eosinophils % (manual) 0 (0-7); Monocytes % (manual) 0 (0-12); Promyelocytes % 0; Reactive Lymphocytes 0
[2021-08-29 04:32] LABS: Albumin 1.7 g/dL (3.4-5.0); BUN/Creatinine Ratio 46.8; Calcium 8.7 mg/dL (8.5-10.1); Magnesium 2.1 mg/dL (1.6-2.6); Potassium 4.5 mmol/L (3.5-5.1)
[2021-08-29 04:42] LABS: Bilirubin, Total 2.6 mg/dL (0.2-1.0); Phosphorus 5.8 mg/dL (2.5-4.90); Total Protein 5.4 g/dL (6.4-8.2)
[2021-08-29 05:04] LABS: Pre Albumin 14.3 mg/dL (20.0-40.0)
[2021-08-29] MEDS: SODIUM CHLOR 0.9% PF (SALINE LOCK) 10ML VIAL/SYR IV SCH ×3 (06:00→20:04)
[2021-08-29 06:13] LABS: Band Neutrophils % (manual) 10; Lymphocytes % (manual) 8 (10.0-50.0); Metamyelocytes % 1; Myelocytes % 1
[2021-08-29] MEDS: Ensure HIGH Protein Chocolate 8oz Bottle PO SCH ×3 (08:00→17:33)
[2021-08-29] MEDS: DexAMETHasone SOD PHOS 10MG/1ML VIAL INJ IV SCH (10:19)
[2021-08-29] MEDS: AZITHROMYCIN 500MG/ 250ML 250 ML IV SCH (10:20)
[2021-08-29] MEDS: FAMOTIDINE (10MG/ML) 2ML VL IV SCH (10:20)
[2021-08-29] MEDS: MULTIPLE VITAMIN TAB PO SCH (10:20)
[2021-08-29] MEDS: ASCORBIC ACID 500 MG TAB PO SCH ×2 (10:20→22:28)
[2021-08-29] MEDS: ENOXAPARIN SOD 30 MG/0.3 ML SYRINGE SC SCH (10:20)
[2021-08-29] MEDS: ZINC SULFATE 220mg CAP or TAB PO SCH (10:20)
[2021-08-29] MEDS ORDERED: SODIUM BICARBONATE 8.4 % INJ 50ML VIAL IV ONE ×2 (11:30→11:33)
[2021-08-29] MEDS: D5W/SOD CHL 0.45% 1,000 ML IV SCH (12:00)
[2021-08-29] MEDS: EPINEPHrine HCL 250 ML IV SCH (12:54)
[2021-08-29 14:05] LABS: Urine Bacteria FEW /hpf (None Seen); Urine Blood 2+ /uL (Negative); Urine Budding Yeast MODERATE /hpf (None Seen); Urine Hyaline Cast MANY /lpf (0 - 2); Urine Mucus FEW (None Seen); Urine Specific Gravity 1.016 (1.001-1.035); Urine WBC 34 /hpf (0 - 5); Urine WBC Clumps PRESENT /hpf (None Seen)
[2021-08-29 14:11] LABS: Creatinine, Urine 119 mg/dL (30.0-125.0); Sodium Urine 13 mmol/L (40-220)
[2021-08-29] MEDS ORDERED: VANCOMYCIN 1GM/250ML 250 ML IV SCH (15:15)
[2021-08-29] MEDS: cefTRIAXone 1GM/50ML D5W 50 ML IV SCH (16:40)
[2021-08-29] MEDS: BUMETANIDE 2.5mg/10ml (0.25 mg/ml) INJ IV SCH (17:37)
[2021-08-29] MEDS ORDERED: TPN PER PHARMACY IV NR ×8 (20:00)
[2021-08-29] MEDS: BUDESONIDE (INHALATION) 0.5 MG/2 ML NEB NEB SCH (22:17)
[2021-08-30] VITALS (91 sets, daily range): BP systolic 88–182; BP diastolic 34–96
[2021-08-30] MEDS: D5W/SOD CHL 0.45% 1,000 ML IV SCH ×2 (02:58→20:00)
[2021-08-30] MEDS: fentaNYL Drip 2500mCg/250mlNS 250 ML IV SCH ×2 (02:59→15:22)
[2021-08-30] MEDS: NOREPINEPHRINE 8 MG/250ML KIT 250 ML IV SCH (03:00)
[2021-08-30] MEDS: PROPOFOL 100 ML IV SCH ×4 (04:10→18:01)
[2021-08-30 04:22] LABS: Hemoglobin 9.9 g/dL (12.2-16.2); Mean Corpuscular Hemoglobin 29.5 pg (28.0-32.0); Red Blood Cells 3.34 10^6/uL (4.0-5.20); Red Cell Distribution Width 13.7 % (11.8-14.3); White Blood Cell 21.8 10^3/uL (4.4-10.8)
[2021-08-30 04:51] LABS: Albumin 1.4 g/dL (3.4-5.0); BUN/Creatinine Ratio 41.1; Bilirubin, Total 2.6 mg/dL (0.2-1.0); Calcium 7.9 mg/dL (8.5-10.1); Phosphorus 5.8 mg/dL (2.5-4.90); Total Protein 4.7 g/dL (6.4-8.2)
[2021-08-30 05:00] LABS: Basophils % (manual) 0 (0.0-2.0); Blast Cells 0; Eosinophils % (manual) 0 (0-7); Metamyelocytes % 0; Promyelocytes % 0; Reactive Lymphocytes 0
[2021-08-30] MEDS: ARTIFICIAL TEARS 15ml EACHEYE SCH ×4 (05:14→17:38)
[2021-08-30] MEDS: SODIUM CHLOR 0.9% PF (SALINE LOCK) 10ML VIAL/SYR IV SCH ×3 (05:14→22:17)
[2021-08-30] MEDS: ACCU-CHEK COMFORT CURVE STRIP VI SCH ×4 (06:16→17:38)
[2021-08-30] MEDS: InsuLIN REG 1unit/0.01ml Soln (100units/ml) SC SCH ×4 (06:30→17:39)
[2021-08-30] MEDS: BUMETANIDE 2.5mg/10ml (0.25 mg/ml) INJ IV SCH (06:49)
[2021-08-30] MEDS: Ensure HIGH Protein Chocolate 8oz Bottle PO SCH ×3 (07:37→17:38)
[2021-08-30 08:00] LABS: Band Neutrophils % (manual) 14; Lymphocytes % (manual) 6 (10.0-50.0); Monocytes % (manual) 2 (0-12); Myelocytes % 4
[2021-08-30] MEDS: FUROSEMIDE 100 MG/10ML VIAL IV SCH ×2 (09:45→17:38)
[2021-08-30] MEDS: FAMOTIDINE (10MG/ML) 2ML VL IV SCH (09:47)
[2021-08-30] MEDS: AZITHROMYCIN 500MG/ 250ML 250 ML IV SCH (09:47)
[2021-08-30] MEDS: ASCORBIC ACID 500 MG TAB PO SCH ×2 (09:47→22:17)
[2021-08-30] MEDS: ZINC SULFATE 220mg CAP or TAB PO SCH (09:47)
[2021-08-30] MEDS: MULTIPLE VITAMIN TAB PO SCH (09:47)
[2021-08-30] MEDS: DexAMETHasone SOD PHOS 10MG/1ML VIAL INJ IV SCH (09:47)
[2021-08-30] MEDS: ENOXAPARIN SOD 30 MG/0.3 ML SYRINGE SC SCH (09:48)
[2021-08-30] MEDS: BUDESONIDE (INHALATION) 0.5 MG/2 ML NEB NEB SCH ×2 (10:49→22:18)
[2021-08-30] MEDS ORDERED: SODIUM BICARBONATE 8.4 % INJ 50ML VIAL IV ONE (11:30)
[2021-08-30] MEDS: EPINEPHrine HCL 250 ML IV SCH (13:15)
[2021-08-30] MEDS ORDERED: VANCOMYCIN 1GM/250ML 0 ML IV ONE (14:25)
[2021-08-30] MEDS ORDERED: VANCOMYCIN 500 MG in D5W 5% 100 ML IV ONE (15:00)
[2021-08-30] MEDS: cefTRIAXone 1GM/50ML D5W 50 ML IV SCH (16:06)
[2021-08-30] MEDS ORDERED: TPN PER PHARMACY IV NR ×7 (20:00)
[2021-08-31] VITALS (66 sets, daily range): BP systolic 70–134; BP diastolic 15–48
[2021-08-31] MEDS: fentaNYL Drip 2500mCg/250mlNS 250 ML IV SCH ×2 (04:00→13:43)
[2021-08-31 04:06] LABS: BUN/Creatinine Ratio 32.2; Calcium 7.5 mg/dL (8.5-10.1); Magnesium 1.8 mg/dL (1.6-2.6); Potassium 4.6 mmol/L (3.5-5.1)
[2021-08-31 04:09] LABS: Bilirubin, Total 2.7 mg/dL (0.2-1.0)
[2021-08-31] MEDS: ACCU-CHEK COMFORT CURVE STRIP VI SCH ×3 (06:00→12:03)
[2021-08-31] MEDS: InsuLIN REG 1unit/0.01ml Soln (100units/ml) SC SCH ×3 (06:00→12:07)
[2021-08-31] MEDS: ARTIFICIAL TEARS 15ml EACHEYE SCH ×3 (06:00→12:07)
[2021-08-31] MEDS: FUROSEMIDE 100 MG/10ML VIAL IV SCH (06:00)
[2021-08-31] MEDS: SODIUM CHLOR 0.9% PF (SALINE LOCK) 10ML VIAL/SYR IV SCH ×2 (06:00→13:44)
[2021-08-31] MEDS: PROPOFOL 100 ML IV SCH ×2 (06:45→12:42)
[2021-08-31] MEDS: Ensure HIGH Protein Chocolate 8oz Bottle PO SCH ×2 (08:00→12:00)
[2021-08-31] MEDS ORDERED: VASOPRESSIN 50 UNITS in D5W 5% 247.5 ML IV SCH (09:00)
[2021-08-31] MEDS: FAMOTIDINE (10MG/ML) 2ML VL IV SCH (09:15)
[2021-08-31] MEDS: ASCORBIC ACID 500 MG TAB PO SCH (09:15)
[2021-08-31] MEDS: ENOXAPARIN SOD 30 MG/0.3 ML SYRINGE SC SCH (09:15)
[2021-08-31] MEDS: DexAMETHasone SOD PHOS 10MG/1ML VIAL INJ IV SCH (09:15)
[2021-08-31] MEDS: ZINC SULFATE 220mg CAP or TAB PO SCH (09:15)
[2021-08-31] MEDS: AZITHROMYCIN 500MG/ 250ML 250 ML IV SCH (09:15)
[2021-08-31] MEDS: MULTIPLE VITAMIN TAB PO SCH (09:15)
[2021-08-31] MEDS: D5W/SOD CHL 0.45% 1,000 ML IV SCH (12:08)
[2021-08-31] MEDS: BUDESONIDE (INHALATION) 0.5 MG/2 ML NEB NEB SCH (12:15)
[2021-08-31] MEDS: EPINEPHrine HCL 250 ML IV SCH (13:15)
[2021-08-31] MEDS: NOREPINEPHRINE 8 MG/250ML KIT 250 ML IV SCH (13:42)
[2021-08-31] MEDS ORDERED: LORazepam 2MG/ML-1ML VIAL IV PRN (15:00)
[2021-08-31] MEDS ORDERED: MORPHINE SULFATE INJECTION 2 MG/ML SYRG IV PRN (15:00)
[2021-08-31] MEDS ORDERED: TPN PER PHARMACY IV NR ×8 (20:00)
== END 2021-08-31 16:24 | DRG 870 ==
LOC: ER 18:53 → TELE 08-14 06:00 → TELE-EAST 08-14 22:15 → TELE-E-ADS 08-18 03:29 → ICU WEST 08-21 11:20
PROVIDERS: ADMIT Nurse Practitioner Family; ATTEND Internal Medicine Geriatric Medicine
PROC: XW033E5 Introduction of Remdesivir Anti-infective into Peripheral Vein, Percutaneous Approach, New Technology Group 5 (ICD-10-PCS; 2021-08-14)
PROC: 05HA33Z Insertion of Infusion Device into Left Brachial Vein, Percutaneous Approach (ICD-10-PCS; 2021-08-20)
PROC: B54NZZA Ultrasonography of Left Upper Extremity Veins, Guidance (ICD-10-PCS; 2021-08-20)
PROC: 5A1955Z Respiratory Ventilation, Greater than 96 Consecutive Hours (ICD-10-PCS; principal; 2021-08-21)
PROC: 0BH17EZ Insertion of Endotracheal Airway into Trachea, Via Natural or Artificial Opening (ICD-10-PCS; 2021-08-21)
PROC: 02HV33Z Insertion of Infusion Device into Superior Vena Cava, Percutaneous Approach (ICD-10-PCS; 2021-08-21)
PROC: B544ZZA Ultrasonography of Left Jugular Veins, Guidance (ICD-10-PCS; 2021-08-21)
PROC: 04HK33Z Insertion of Infusion Device into Right Femoral Artery, Percutaneous Approach (ICD-10-PCS; 2021-08-21)
PROC: B44LZZZ Ultrasonography of Femoral Artery (ICD-10-PCS; 2021-08-21)
DX: A41.89 Other specified sepsis (principal); J96.01 Acute respiratory failure with hypoxia; U07.1 COVID-19; J12.82 Pneumonia due to coronavirus disease 2019; G93.41 Metabolic encephalopathy; R65.21 Severe sepsis with septic shock; J96.02 Acute respiratory failure with hypercapnia; N17.0 Acute kidney failure with tubular necrosis; E87.0 Hyperosmolality and hypernatremia; I48.20 Chronic atrial fibrillation, unspecified; Z66 Do not resuscitate; E88.09 Other disorders of plasma-protein metabolism, not elsewhere classified; F03.90 Unspecified dementia, unspecified severity, without behavioral disturbance, psychotic disturbance, mood disturbance, and anxiety; F41.9 Anxiety disorder, unspecified; I10 Essential (primary) hypertension; E86.0 Dehydration; D64.9 Anemia, unspecified; Z51.5 Encounter for palliative care
CPT/HCPCS: 36415; 36600; 71045; 80048; 80053; 80076; 80202; 81001; 82040; 82570; 82728; 82805; 82962; 83605; 83615; 83735; 84100; 84300; 84478; 84484; 85007; 85025; 85027; 85379; 85610; 85730; 87040; 87070; 87086; 87205; 87426; 93970; 94002; 94003; 94640; 96365; 96367; 96375; G0378; J0153; J0171; J0330; J0696; J1100; J1815; J2250; J2405; J2704; J3490; J7060; J7131